=== PATIENT | male | born 1950 | race Caucasian/White ===

== ENCOUNTER 2017-03-01 16:17 | Emergency (ER) | payer OTHER ==
[2017-03-01 16:56] LABS: Hematocrit 42.8 % (42.0-52.0); Hemoglobin 15.3 gm/dL (13.5-18.0); Mean Cell Volume 93.4 fl (78-100); Mean Corpuscular Hemoglobin 33.4 pg (27-31); Mean Corpuscular Hgb Conc 35.7 g/dl (32-36); Mean Platelet Volume 10.1 fl (6.0-9.5); Platelet Count 127 K/mm3 (150-450); Red Blood Count 4.58 M/mm3 (4.7-6.0); Red Cell Distribution Width 13.2 % (11.5-14.0); White Blood Count 21.9 K/mm3 (4.0-10.5)
[2017-03-01 17:03] LABS: Total Cells Counted 100
[2017-03-01 17:06] LABS: INR 1.06 INR (0.90-1.10); Partial Thrombolplastin Time 27.4 Seconds (24-32)
[2017-03-01 17:11] LABS: ALT 38 U/L (19-67); AST 73 U/L (0-48); Albumin * 3.5 gm/dl (3.4-5.0); Alkaline Phosphatase * 87 U/L (50-170); Anion Gap 14.5 mmol/L (6.8-13.8); BUN/Creatinine Ratio 26.5 (9.0-21.6); Bilirubin, Total 0.3 mg/dL (0.0-1.1); Blood Urea Nitrogen 22 mg/dL (6-23); Ca. Corrected For Albumin 8.3 mg/dL (8.4-10.2); Calcium * 8.2 mg/dL (7.9-10.9); Carbon Dioxide 23.6 mmol/L (24-32.6); Chloride 100 mmol/L (97-106); Glucose * 120 mg/dL (70-110); Potassium 4.1 mmol/L (3.4-4.6); Sodium 134 mmol/L (132-142); Total Protein 7.3 gm/dL (6.2-8.2)
[2017-03-01 17:12] LABS: Troponin I Less than 0.017 ng/ml (0.00-0.10)
--- NOTE | 2017-03-01 17:20 | ERNOTE ---
Chest Pain/Cardiac HPI Chief Complaint: Chest Pain Time Seen by Provider: 03/01/17 16:38 Source: patient Exam Limitations: no limitations Allergies/Adverse Reactions: Allergies No Known Allergies Allergy (Unverified 03/01/17 16:35) Narrative: This is a 66-year-old male with a significant past medical history for bilateral PE diagnosed last week. Patient was started on initially heparin given Lovenox and yesterday started taking a liquid 5 mg twice a day. He started having mid upper back pain earlier on today for which he took 2 Aleve after the leads were taken approximate 10 minutes after that he started feeling some mid epigastric pressure and pain while sitting down and watching television. He states that he was not emotionally upset when he got the epigastric pain. Epigastric pain was located in the epigastric region it was pressure-like and he became worried about it. He denied any diaphoresis or palpitations near syncope or syncopal episodes. He called his primary care physician and was educated to come in to the ER. Vital also the patient in the emergency room his epigastric pain with slight radiation to the substernal region had completely subsided. Patient still complained about upper mid back pain slightly to the left of the spine medial to the left scapula. State to me that he thinks he may have slept wrong because when he woke up in the morning he had that back pain. At the time I saw the patient the only complaint he had was slight shortness of breath Review of Systems - Review of Systems Constitutional: Present: no symptoms reported EYE: Present: no symptoms reported ENT: Present: no symptoms reported Respiratory: Present: no symptoms reported Cardiology: Present: no symptoms reported Gastrointestinal/Abdominal: Present: See HPI Genitourinary: Present: no symptoms reported Musculoskeletal: Present: no symptoms reported - Patient's Past Medical History Patient History - Medical: Kidney stone Patient History - Cardiac/Respiratory: Pulmonary Embolism Patient History - Cancer: No Hx of Cancer Patient History - Other: None Physical Exam - Physical Exam General Appearance: Present: wd/wn, alert, no apparent distress Head Exam: Present: normal inspection, no evidence of injury Neck: Present: normal inspection, nontender, supple, full range of motion Respiratory: Present: no respiratory distress, normal breath sounds, no accessory muscle use, chest nontender, lungs clear Cardiovascular/Chest: Present: regular rate, rhythm, no murmur, normal peripheral pulses Gastrointestinal/Abdominal: Present: normal bowel sounds, nontender Extremity Exam: Present: normal inspection, normal range of motion, no edema Neurological Exam: Present: alert, oriented, normal mood/affect, no motor/ sensory deficits ED Progress - Results and Orders Patient's Lab Results:: I have reviewed the patient's lab results. - Vital Signs Patient's Vital Signs:: I have reviewed the patient's vital signs. Vital Signs: Vital Signs 03/01/17 16:21 Temperature 37.0 C Pulse Rate 56 L Respiratory 13 Rate Blood Pressure 200/92 O2 Sat by Pulse 97 Oximetry - X-Ray X-Ray #1 X-Ray: chest - Progress/Reassessment Chief Complaint: Chest Pain - Transfer of Care Physician Sign Out: Lucia Bourne Receiving Physician: Mark Anthony Carrasquillo Plan - Plan Plan: This patient has a history of bilateral pulmonary embolisms for which she is receiving a liquids 5 mg twice a day his primary care physician. He's had an extensive workup including a cardiac workup last week at a [facility] in [place] and was torn out that "his heart was fine" patient's symptoms began after he took Aleve for a back pain. His first set of cardiac enzymes are negative. A second set of enzymes have been ordered at 7:30 PM tonight and this case will be signed out to the oncoming provider. Departure - Departure Clinical Impression: Abdominal pain Qualifiers: Abdominal location: epigastric Qualified Code(s): R10.13 - Epigastric pain Condition: Good Referrals: Katelyn Diego MD [Primary Care Provider] -
[2017-03-01 17:24] LABS: Band 4 % (0-2.0); Immature Granulocyte 4 (0-1); Lymphocyte 11 % (20-51); Monocyte 5 % (0-9); Neutrophil 76 % (42-75); Neutrophil # 16.6 K/mm3 (1.3-6.0); Platelet Estimate Decreased (NORMAL); RBC Morphology Normal (NORMAL)
[2017-03-01] MEDS ORDERED: KETOROLAC TROMETHAMINE 30 MG/ML VIAL IV ONE (19:25)
[2017-03-01] MEDS ORDERED: KETOROLAC TROMETHAMINE 30 MG/ML VIAL ONE (19:26)
[2017-03-01 20:30] VITALS: BP 162/80
== END 2017-03-01 20:58 | disposition home or self-care (01) ==
LOC: ER 16:17
DX: J18.9 Pneumonia, unspecified organism (principal); R10.13 Epigastric pain; Z87.442 Personal history of urinary calculi; Z86.711 Personal history of pulmonary embolism

== ENCOUNTER 2017-03-05 11:50 | Emergency (ER) | payer OTHER ==
[2017-03-05 13:19] LABS: Hemoglobin 15.6 gm/dL (13.5-18.0); Mean Cell Volume 91.5 fl (78-100); Mean Corpuscular Hemoglobin 33.2 pg (27-31); Mean Corpuscular Hgb Conc 36.3 g/dl (32-36); Mean Platelet Volume 9.6 fl (6.0-9.5); Platelet Count 76 K/mm3 (150-450); Red Cell Distribution Width 12.9 % (11.5-14.0)
[2017-03-05 13:22] LABS: Total Cells Counted 100
[2017-03-05 13:37] LABS: Albumin * 3.3 gm/dl (3.4-5.0); Anion Gap 12.1 mmol/L (6.8-13.8); BUN/Creatinine Ratio 23.1 (9.0-21.6); Band 4 % (0-2.0); Bilirubin, Total 0.4 mg/dL (0.0-1.1); Ca. Corrected For Albumin 8.7 mg/dL (8.4-10.2); Calcium * 8.5 mg/dL (7.9-10.9); Carbon Dioxide 24.3 mmol/L (24-32.6); Immature Granulocyte 5 (0-1); Lymphocyte 9 % (20-51); Monocyte 10 % (0-9); Neutrophil 72 % (42-75); Neutrophil # 16.6 K/mm3 (1.3-6.0); Platelet Estimate Decreased (NORMAL); Potassium 4.4 mmol/L (3.4-4.6); Total Protein 7.5 gm/dL (6.2-8.2)
[2017-03-05 13:38] LABS: Toxic Granulation 1+
[2017-03-05] MEDS ORDERED: ONDANSETRON HCL/PF 2 MG/ML VIAL IV ONE (13:38)
[2017-03-05] MEDS ORDERED: MORPHINE SULFATE 4 MG/ML SYRG IV ONE (13:38)
[2017-03-05] MEDS ORDERED: MORPHINE SULFATE 4 MG/ML SYRG ONE (13:39)
[2017-03-05] MEDS ORDERED: ONDANSETRON HCL/PF 2 MG/ML VIAL ONE (13:39)
--- NOTE | 2017-03-05 13:42 | ERNOTE ---
Medical Problem HPI - General Chief Complaint: General Assessment Time Seen by Provider: 03/05/17 13:10 Source: patient, family Exam Limitations: no limitations - Immun/Allergies/Home Medications Immunizations: IMMUNIZATION HX Immunizations Up to Date Yes Allergies/Adverse Reactions: Allergies No Known Allergies Allergy (Verified 03/05/17 12:07) Home Medications: HOME MEDICATIONS Azithromycin [Zithromax] 250 mg PO DAILY #6 tablet 03/01/17 [Last Taken Unknown] Apixaban [Eliquis] 10 mg PO BID 03/05/17 [Last Taken Unknown] Doxycycline Monohydrate 100 mg PO BID #20 tablet 03/05/17 [Last Taken Unknown] HYDROcodone/ACETAMINOPHEN [Vancleave 5-325] 1 each PO Q4H #20 tablet 03/05/17 [Last Taken Unknown] Ondansetron [Zofran Odt] 4 mg PO Q6H PRN #20 tab 03/05/17 [Last Taken Unknown] buPROPion HCL [Wellbutrin XL] 150 mg PO DAILY 03/05/17 [Last Taken Unknown] - History of Present History Narrative: Patient has a known underlying condition of bilateral pulmonary embolus and is currently on Eliquis. Patient developed a headache and bilateral flank pain. Patient was throwing up earlier however no definitive nausea is present now, only a light feeling of queasiness. Timing: constant Severity: moderate Review of Systems - Review of Systems Constitutional: Present: See HPI EYE: Present: no symptoms reported ENT: Present: no symptoms reported Respiratory: Present: shortness of breath Cardiology: Present: no symptoms reported Gastrointestinal/Abdominal: Present: no symptoms reported Genitourinary: Present: See HPI Musculoskeletal: Present: no symptoms reported Skin: Present: no symptoms reported Neurological: Present: no symptoms reported Endocrine: Present: no symptoms reported Hematologic/Lymphatic: Present: no symptoms reported Psych: Present: no symptoms reported - Patient's Past Medical History Patient History - Medical: Kidney stone Patient History - Cardiac/Respiratory: Pulmonary Embolism Patient History - Cancer: Lung - patient has a lung mass and is due for a biopsy in 2 weeks, presumptive diagnosis is lung cancer Patient History - Other: None - Social History Living Situations: home Smoking Status: Current every day smoker Alcohol Use: none Drug Use: none - Immunizations Immunizations Up to Date: Yes Physical Exam - Physical Exam General Appearance: Present: wd/wn, alert, moderate distress Head Exam: Present: normal inspection Eye Exam: Normal inspection: bilateral, PERRL: bilateral Ears, Nose, Throat: Present: normal ENT inspection, H, normal pharynx Neck: Present: normal inspection, nontender Respiratory: Present: no respiratory distress, no accessory muscle use, chest nontender, decreased breath sounds, wheezing Cardiovascular/Chest: Present: regular rate, rhythm, no murmur, normal peripheral pulses Gastrointestinal/Abdominal: Present: normal bowel sounds, nontender, nondistended, soft, no organomegaly Rectal Exam: Present: deferred Back Exam: Present: normal range of motion, CVA tenderness (R), CVA tenderness ( L) Extremity Exam: Present: normal inspection, non-tender, no edema, normal range of motion Neurological Exam: Present: alert, oriented, normal mood/affect Skin Exam: Present: normal color, warm/dry Lymphatic Exam: Present: no adenopathy ED Progress - Results and Orders Patient's Lab Results:: I have reviewed the patient's lab results. - Vital Signs Patient's Vital Signs:: I have reviewed the patient's vital signs. Vital Signs: Vital Signs 03/05/17 03/05/17 11:57 13:37 Temperature 36.2 C L Pulse Rate 70 60 Respiratory 12 16 Rate Blood Pressure 167/97 178/88 O2 Sat by Pulse 97 95 Oximetry - CT/Ultrasound CT/Ultrasound Narrative: CT the head was reviewed as well as CT of the abdomen and pelvis - Progress/Reassessment Chief Complaint: General Assessment Plan - Plan Plan: Unclear etiology for the headaches since starting the . It appears on the abdomen and pelvis CT that the patient may be passed a kidney stone. Also striations around the kidneys which makes me wonder about some possible underlying pyelonephritis however the UA was relatively clear. I am uncertain as to why he has marked leukocytosis, however he does have COPD. I will treat the patient with 5 days of Ciplenard Vancleave for the headache pain and general pain and Zofran for any nausea or vomiting. Patient will need to follow-up with Dr. Diego and he was told for certain to keep his pulmonary appointment. Departure - Departure Clinical Impression: Pulmonary emboli Qualifiers: Pulmonary embolism type: other Chronicity: chronic Acute cor pulmonale presence : without acute cor pulmonale Qualified Code(s): I27.82 - Chronic pulmonary embolism COPD (chronic obstructive pulmonary disease) Qualifiers: COPD type: unspecified COPD Qualified Code(s): J44.9 - Chronic obstructive pulmonary disease, unspecified Leukocytosis Qualifiers: Leukocytosis type: unspecified Qualified Code(s): D72.829 - Elevated white blood cell count, unspecified Disposition: Home self-care Condition: Good Instructions: Pulmonary Embolism, Chronic Obstructive Pulmonary Disease, Easy- to-Read, Leukocytosis Referrals: Katelyn Diego MD [Primary Care Provider] - Prescriptions: Doxycycline Monohydrate 100 mg PO BID #20 tablet HYDROcodone/ACETAMINOPHEN [Vancleave 5-325] 1 each PO Q4H #20 tablet Ondansetron [Zofran Odt] 4 mg PO Q6H PRN #20 tab PRN Reason: Nausea And Vomiting
[2017-03-05 14:59] LABS: Urine Bilirubin Negative (NEGATIVE); Urine Ketone Negative (NEGATIVE); Urine Nitrite Negative (NEGATIVE); Urine Protein 15 mg/dL (NEGATIVE); Urine Specific Gravity >=1.030 SP.GR. (1.005-1.030); Urine Urobilinogen Normal (NORMAL)
[2017-03-05 15:24] LABS: Urine Appearance Clear; Urine Blood 5 /ul (NEGATIVE); Urine Color Yellow; Urine RBC 0-5 /hpf (0-5); Urine WBC None Seen /hpf (0-5)
[2017-03-05 15:25] LABS: Urine Bacteria None Seen
[2017-03-05 16:17] VITALS: BP 192/78
== END 2017-03-05 16:39 | disposition home or self-care (01) ==
LOC: ER 11:50
DX: I27.82 Chronic pulmonary embolism (principal); J44.9 Chronic obstructive pulmonary disease, unspecified; D72.829 Elevated white blood cell count, unspecified; Z87.442 Personal history of urinary calculi; Z79.01 Long term (current) use of anticoagulants; F17.200 Nicotine dependence, unspecified, uncomplicated
CPT/HCPCS: 36415; 70450; 74176; 80053; 81001; 83735; 85007; 85025; 96374; 96375; 99285; J2405

== ENCOUNTER 2017-03-10 13:39 | Emergency (ER) | payer OTHER ==
--- NOTE | 2017-03-10 14:02 | ERNOTE ---
Abdominal HPI - Narrative Date of Service: 03/10/17 - General Chief Complaint: Abdominal Pain Time Seen by Provider: 03/10/17 13:53 Source: patient, family, RN notes reviewed, past records Exam Limitations: no limitations - Immun/Allergies/Home Medications Immunizatons: IMMUNIZATION HX Immunizations Up to Date Yes History of Influenza Vaccine No Hx Pneumococcal Vaccination No Allergies/Adverse Reactions: Allergies No Known Allergies Allergy (Verified 03/10/17 13:48) Home Medications: HOME MEDICATIONS Apixaban [Eliquis] 10 mg PO BID 03/05/17 [Last Taken Unknown] Doxycycline Monohydrate 100 mg PO BID #20 tablet 03/05/17 [Last Taken Unknown] HYDROcodone/ACETAMINOPHEN [[place] 5-325] 1 each PO Q4H #20 tablet 03/05/17 [Last Taken Unknown] Ondansetron [Zofran Odt] 4 mg PO Q6H PRN #20 tab 03/05/17 [Last Taken Unknown] buPROPion HCL [Wellbutrin XL] 150 mg PO DAILY 03/05/17 [Last Taken Unknown] Alprazolam [Xanax] 0.25 mg PO PRN PRN 03/10/17 [Last Taken Unknown] - History of Present Illness Narrative: 66 year old male brought to the ED by his for constipation. He was seen here on 03/05 with flank pain. A stone protocol CT was done to check for retroperitoneal bleeding as the patient recently started taking Eliquis for a PE. It was thought at that time that he may have passed a stone. He was prescribed [place]. He then followed up with his PCP and had an abdominal xray that showed severe stool retention in the proximal colon. He has been taking Miralax and has had a fleets enema and soap suds enema today without any results. He also reports pain diffusely in both of his legs, worse in the knee region. The leg pain has been ongoing for about 2 weeks. During his work-up for the PE, he was found to have a fairly large nodule in his left lung. At some point recently, he was also found to have pneumonia. He is on doxycycline for this and reports that it is improving. Prior Treatment: Present: recently seen, treated by physician, recently hospitalized, currently on antibiotics Review of Systems - Review of Systems Constitutional: Present: recent illness, fatigue, malaise, decreased activity level. Absent: fever EYE: Present: no symptoms reported ENT: Present: no symptoms reported Respiratory: Absent: shortness of breath, cough Cardiology: Absent: chest pain, edema Gastrointestinal/Abdominal: Present: nausea, abdominal pain, eating less, drinking less. Absent: vomiting, diarrhea Genitourinary: Absent: dysuria, hematuria Musculoskeletal: Present: muscle pain, joint pain. Absent: joint swelling Skin: Absent: rash, lesions, lumps Neurological: Present: weakness, numbness, tingling Endocrine: Present: no symptoms reported Hematologic/Lymphatic: Present: easy bruising, easy bleeding Psych: Present: no symptoms reported - Patient's Past Medical History Patient History - Medical: Kidney stone Patient History - Cardiac/Respiratory: Hypertension, Hyperlipidemia, Pulmonary Embolism Patient History - Cancer: Skin Patient History - Surgical Procedures: No surgical history Patient History - Other: None - Social History Living Situations: spouse Abuse History: No History of abuse Psych History: No pertinent hx Smoking Status: Current every day smoker Have you smoked in the past 12 months: Yes Do you dip or chew tobacco: No Alcohol Use: none Drug Use: none - Immunizations Immunizations Up to Date: Yes Hx Pneumococcal Vaccination: No History of Influenza Vaccine: No Physical Exam - Physical Exam General Appearance: Present: wd/wn, alert, mild distress Head Exam: Present: normal inspection Respiratory: Present: no respiratory distress, normal breath sounds, no accessory muscle use, lungs clear Cardiovascular/Chest: Present: regular rate, rhythm, no murmur, normal peripheral pulses Gastrointestinal/Abdominal: Present: soft, tenderness - mild, diffuse, abnormal bowel sounds - sluggish, distended - bloated appearing. Absent: mass Extremity Exam: Present: normal inspection, non-tender, normal range of motion, no edema Neurological Exam: Present: alert, oriented, normal mood/affect Skin Exam: Present: normal color, warm/dry ED Progress - Results and Orders Patient's Lab Results:: I have reviewed the patient's lab results. - Vital Signs Patient's Vital Signs:: I have reviewed the patient's vital signs. Vital Signs: Vital Signs 03/10/17 13:43 Temperature 36.7 C Pulse Rate 79 Respiratory 16 Rate Blood Pressure 177/92 O2 Sat by Pulse 98 Oximetry - X-Ray X-Ray #1 X-Ray: abdomen Interpretation: Reviewed by me X-ray Comments: Abdomen Flat W/ Upright *: No subdiaphragmatic free air. There is dilation of the cecum/ right side of the colon, with large amount of stool within the dilated segment. No definite pathologic calcifications apparent. Osseous structures are intact. Degenerative changes of the spine and bilateral hips noted. IMPRESSION: Dilated colon within the right side of the abdomen, with large amount of stool retention. Consider severe constipation versus possible colonic obstruction. Electronically signed by Tiana Talbert M.D.. - CT/Ultrasound CT/Ultrasound Narrative: CT abdomen and pelvis with contrast: IMPRESSION: 1. Dilation and distention of the proximal large bowel, and atypical location of the base of the cecum as discussed above. Consider cecal bascule. 2. Diverticulosis of the descending and sigmoid colon with minimal stranding, concerning for possible mild colitis or diverticulitis. 3. Infrarenal segment abdominal aortic aneurysm (3.5 cm) with atherosclerosis. 4. Ill-defined lesion suggested within the right hepatic lobe. Correlate clinically for any potential hepatic pathology. Consider further evaluation of the liver by liver protocol CT or MRI on a routine basis. 5. Bilateral nodular lesions of the adrenal glands, indeterminate. Could represent adenomas versus metastatic disease. Consider further evaluation of the adrenal glands by adrenal protocol multiphase CT or MRI. 6. Appendix not definitively seen but no definite signs of pericecal inflammatory changes. 7. Bilateral perinephric stranding, nonspecific. Consider pyelonephritis. Electronically signed by Tiana Talbert M.D.. - Progress/Reassessment Chief Complaint: Abdominal Pain Progress:: Improved Plan - Plan Plan: CT findings discussed with patient. He has been passing flatus since drinking the contrast for his CT. Discussed that the contrast should facilitate him finally having a bowel movement, but if he has not had one by morning he is to try mag citrate. Also informed of abnormal lesion on liver and on adrenal glands , and that while they are of unknown significance, they are concerning given the lung mass that was recently found. He is to be seen by pulmonology at [facility] on 03/19 regarding a biopsy of the mass. His WBC continues to be elevated at 16.5, but this has improved since he last had labs on 03/05. His sodium is 122 today, which is unchanged from 03/05. Suspect this may be the cause of his leg cramps. Departure Clinical Impression: Hyponatremia Constipation Qualifiers: Constipation type: unspecified constipation type Qualified Code(s): K59.00 - Constipation, unspecified - Departure Disposition: Home Follow Up Needed Condition: Stable Instructions: Hyponatremia, [id number], Constipation, Adult, [id number] Additional Instructions: If you have not had a bowel movement by morning - drink an entire bottle of magnesium citrate If you have still not had a bowel movement by this time tomorrow, return to the ER If you have worsening pain or vomiting, return to the ER Increase your sodium intake Follow up with Dr. Diego as scheduled on Sunday Referrals: Katelyn Diego MD [Primary Care Provider] -
[2017-03-10] MEDS ORDERED: DIATRIZOATE MEGLUMINE, SODIUM 30 ML BTL ONE (14:24)
[2017-03-10] MEDS ORDERED: DIATRIZOATE MEGLUMINE, SODIUM 30 ML BTL PO ONE (14:24)
[2017-03-10] MEDS ORDERED: MORPHINE SULFATE 2 MG/ML DISP.SYRIN IV ONE (14:24)
[2017-03-10] MEDS ORDERED: ONDANSETRON HCL/PF 2 MG/ML VIAL IV ONE (14:24)
[2017-03-10] MEDS ORDERED: MORPHINE SULFATE 2 MG/ML DISP.SYRIN ONE (14:27)
[2017-03-10] MEDS ORDERED: ONDANSETRON HCL/PF 2 MG/ML VIAL ONE (14:27)
[2017-03-10 14:41] LABS: Hematocrit 42.1 % (42.0-52.0); Hemoglobin 15.2 gm/dL (13.5-18.0); Mean Cell Volume 91.5 fl (78-100); Mean Corpuscular Hgb Conc 36.1 g/dl (32-36); Mean Platelet Volume 9.8 fl (6.0-9.5); Platelet Count 32 K/mm3 (150-450); Red Cell Distribution Width 13.1 % (11.5-14.0); White Blood Count 16.5 K/mm3 (4.0-10.5)
[2017-03-10 14:53] LABS: Total Cells Counted 100
[2017-03-10 14:54] LABS: Albumin * 3.2 gm/dl (3.4-5.0); Anion Gap 13.8 mmol/L (6.8-13.8); Bilirubin, Total 0.4 mg/dL (0.0-1.1); Ca. Corrected For Albumin 8.8 mg/dL (8.4-10.2); Calcium * 8.5 mg/dL (7.9-10.9); Carbon Dioxide 25.8 mmol/L (24-32.6); Potassium 4.6 mmol/L (3.4-4.6); Total Protein 7.1 gm/dL (6.2-8.2)
[2017-03-10 15:05] LABS: BUN/Creatinine Ratio 21.5 (9.0-21.6)
[2017-03-10 15:17] LABS: Band 13 % (0-2.0); Eosinophil 1 % (0-3); Lymphocyte 23 % (20-51); Monocyte 7 % (0-9); Neutrophil 56 % (42-75); Neutrophil # 9.2 K/mm3 (1.3-6.0); Platelet Estimate Decreased (NORMAL)
[2017-03-10 15:18] LABS: RBC Morphology Normal (NORMAL)
[2017-03-10] MEDS ORDERED: MORPHINE SULFATE 4 MG/ML SYRG ONE (15:22)
[2017-03-10] MEDS ORDERED: MORPHINE SULFATE 4 MG/ML SYRG IV ONE (15:23)
[2017-03-10 18:49] VITALS: BP 165/93
== END 2017-03-10 18:39 | disposition home or self-care (01) ==
LOC: ER 13:39
DX: E87.1 Hypo-osmolality and hyponatremia (principal); K59.00 Constipation, unspecified; Z87.442 Personal history of urinary calculi; I10 Essential (primary) hypertension; E78.5 Hyperlipidemia, unspecified; Z85.828 Personal history of other malignant neoplasm of skin; F17.200 Nicotine dependence, unspecified, uncomplicated
CPT/HCPCS: 36415; 74020; 74177; 80053; 85007; 85025; 96374; 96375; 99285; J2405

== ENCOUNTER 2017-03-18 07:38 | Emergency (ER) | payer MEDICARE, OTHER ==
[2017-03-18 07:57] VITALS: BP 174/94
[2017-03-18] MEDS ORDERED: ONDANSETRON HCL/PF 2 MG/ML VIAL IM ONE (08:31)
[2017-03-18] MEDS ORDERED: HYDROmorphone HCL 2 MG/ML VIAL IM ONE (08:31)
[2017-03-18] MEDS ORDERED: ONDANSETRON HCL/PF 2 MG/ML VIAL ONE (08:34)
[2017-03-18] MEDS ORDERED: HYDROmorphone HCL 2 MG/ML VIAL ONE (08:34)
--- NOTE | 2017-03-18 08:38 | ERNOTE ---
Lower Extremity HPI - General Time Seen by Provider: 03/18/17 08:22 Source: patient Exam Limitations: no limitations - Immun/Allergies/Home Medications Immunizations: IMMUNIZATION HX Immunizations Up to Date Yes History of Influenza Vaccine No Hx Pneumococcal Vaccination No Allergies/Adverse Reactions: Allergies Allergy/AdvReac Type Severity Reaction Status Date / Time ropinirole [From Requip] AdvReac Verified 03/18/17 08:07 Home Medications: HOME MEDICATIONS Apixaban [Eliquis] 10 mg PO BID 03/05/17 [Last Taken Unknown] Doxycycline Monohydrate 100 mg PO BID #20 tablet 03/05/17 [Last Taken Unknown] buPROPion HCL [Wellbutrin XL] 150 mg PO DAILY 03/05/17 [Last Taken Unknown] Alprazolam [Xanax] 0.25 mg PO PRN PRN 03/10/17 [Last Taken Unknown] HYDROcodone/ACETAMINOPHEN [Stevens 5-325] 1 each PO TID PRN #12 tablet 03/18/17 [ Last Taken Unknown] - History of Present Illness Narrative: Patient presents to the emergency room for bruising on the lateral aspect of both knees where his legs to make contact with his recliner. He shouldn't is on a liquid for PE. Complains of pain in both knees before he had his PE and was on liquids and now the pain is worse especially in the area of the bruising. Stevens and soaking in warm water helps. Review of Systems - Review of Systems Constitutional: Present: no symptoms reported EYE: Present: no symptoms reported ENT: Present: no symptoms reported Respiratory: Present: no symptoms reported Cardiology: Present: no symptoms reported Gastrointestinal/Abdominal: Present: no symptoms reported Genitourinary: Present: no symptoms reported Musculoskeletal: Present: See HPI - Patient's Past Medical History Patient History - Medical: Kidney stone Patient History - Cardiac/Respiratory: Hypertension, Hyperlipidemia, Pulmonary Embolism Patient History - Cancer: Skin Patient History - Surgical Procedures: No surgical history Patient History - Other: None - Social History Living Situations: spouse Abuse History: No History of abuse Psych History: No pertinent hx Smoking Status: Current every day smoker Alcohol Use: none Drug Use: none - Immunizations Immunizations Up to Date: Yes Hx Pneumococcal Vaccination: No History of Influenza Vaccine: No Physical Exam - Physical Exam General Appearance: Present: wd/wn, alert, no apparent distress Head Exam: Present: normal inspection, no evidence of injury Neck: Present: normal inspection, nontender Respiratory: Present: no respiratory distress, normal breath sounds Cardiovascular/Chest: Present: regular rate, rhythm, no murmur Extremity Exam: Present: other - patient does appear to have bruising and ecchymosis lightly on the lateral aspect of both knees. Upon further questioning it is obvious that the patient has been putting pressure on those areas when he is on his recliner. Otherwise patient is well able to walk into the exam room and walked out he does have knee pain however and a degree of degenerative joint disease in both knees. Neurological Exam: Present: alert, oriented, normal mood/affect ED Progress - Vital Signs Patient's Vital Signs:: I have reviewed the patient's vital signs. Vital Signs: Vital Signs 03/18/17 07:52 Pulse Rate 84 Respiratory 86 H Rate Blood Pressure 174/94 O2 Sat by Pulse 97 Oximetry - Progress/Reassessment Chief Complaint: Lower Extremity Pain/ Injury Plan - Plan Plan: This patient has ecchymosis and bruising for having been anticoagulated. His knee pain is a combination of the bruising due to being anticoagulated and a certain degree of 2 degeneration of both knee joints. The patient will be treated with a limited number of Stevens and sensed his primary care physician for further therapy. Departure Clinical Impression: Contusion, knee Qualifiers: Encounter type: initial encounter Laterality: unspecified laterality Qualified Code(s): S80.00XA - Contusion of unspecified knee, initial encounter - Departure Disposition: Home self-care Condition: Good Instructions: Knee Pain Additional Instructions: Please put extra padding on your recliner chair when you are resting on it so that there is no pressure on the lateral aspect of your knees. These follow up with her primary care physician on Sunday Referrals: Katelyn Diego MD [Primary Care Provider] - Prescriptions: HYDROcodone/ACETAMINOPHEN [Ste[place] 5-325] 1 each PO TID PRN #12 tablet PRN Reason: Pain
== END 2017-03-18 08:50 | disposition home or self-care (01) ==
LOC: ER 07:38
DX: S80.02XA Contusion of left knee, initial encounter (principal); S80.01XA Contusion of right knee, initial encounter; I10 Essential (primary) hypertension; E78.5 Hyperlipidemia, unspecified; Z85.828 Personal history of other malignant neoplasm of skin; F17.200 Nicotine dependence, unspecified, uncomplicated
CPT/HCPCS: 96372; 99284; J2405